=== PATIENT | female | born 2000 | race Caucasian/White ===

== ENCOUNTER 2023-09-16 12:48 | Inpatient (IN) | payer MEDICARE, OTHER ==
[2023-09-16 12:55] VITALS: BMI 24.1
[2023-09-16] MEDS ORDERED: SODIUM CHLORIDE 1,000 ML IV STA (13:36)
[2023-09-16 14:36] LABS: BASO % 0.4 % (0-2.0); EOS % 0.4 % (0-4.5); HEMATOCRIT 41.7 % (32.4-45.2); HEMOGLOBIN 13.1 GM/dL (10.7-15.3); LYMPH % 14.6 % (8-40); MCHC 31.4 g/dl (32.0-36.0); MEAN CELL VOLUME 82.8 fl (80-96); MEAN PLT VOLUME 8.6 fl (7.5-11.1); NEUT % 77.6 % (42.8-82.8); PLATELET COUNT 210 10^3/uL (134-434); RBC 5.04 M/mm3 (3.60-5.2); RDW 13.7 % (11.6-15.6); WHITE BLOOD COUNT 8.7 K/mm3 (4.0-10.0)
[2023-09-16 14:42] LABS: INR 1.15 (0.83-1.09); PROTHROMBIN TIME (PATIENT) 13.3 SEC (9.7-13.0)
[2023-09-16 14:45] LABS: ACTIVATED PTT 29.7 SECONDS (25.2-36.5)
[2023-09-16 15:02] LABS: POTASSIUM 3.8 mmol/L (3.5-5.1)
[2023-09-16 15:04] LABS: CALCIUM 9.8 mg/dL (8.5-10.1)
[2023-09-16 15:05] LABS: ALBUMIN 4.1 g/dl (3.4-5.0); BLOOD UREA NITROGEN 7.7 mg/dL (7-18)
[2023-09-16 15:08] LABS: CREATININE 0.7 mg/dL (0.55-1.3)
[2023-09-16 15:09] LABS: BILIRUBIN,TOTAL 0.3 mg/dL (0.2-1)
[2023-09-16 15:10] LABS: TOT PROT 7.9 g/dl (6.4-8.2)
[2023-09-16] MEDS ORDERED: ALPRAZolam 0.25 MG TABLET PO ONE (16:10)
[2023-09-16] MEDS ORDERED: ALPRAZolam 0.25 MG TABLET ONE (16:42)
[2023-09-16 17:01] LABS: URINE APPEARANCE CLEAR; URINE BILIRUBIN NEGATIVE (NEGATIVE); URINE COLOR YELLOW; URINE GLUCOSE (UA) NEGATIVE (NEGATIVE); URINE KETONE NEGATIVE (NEGATIVE); URINE LEUK ESTERASE NEGATIVE (NEGATIVE); URINE NITRITE NEGATIVE (NEGATIVE); URINE PROTEIN NEGATIVE (NEGATIVE); URINE UROBILINOGEN 0.2 mg/dL (0.2-1.0)
[2023-09-16 17:05] LABS: HCG,QUALITATIVE URINE Negative
[2023-09-16] MEDS ORDERED: ALPRAZolam 0.25 MG TABLET PO PRN (19:09)
[2023-09-17 08:03] LABS: BASO % 0.5 % (0-2.0); EOS % 0.3 % (0-4.5); HEMATOCRIT 39.2 % (32.4-45.2); HEMOGLOBIN 12.3 GM/dL (10.7-15.3); LYMPH % 22.9 % (8-40); MCHC 31.4 g/dl (32.0-36.0); MEAN CELL VOLUME 82.8 fl (80-96); MEAN PLT VOLUME 9.2 fl (7.5-11.1); MONO % 6.6 % (3.8-10.2); NEUT % 69.7 % (42.8-82.8); PLATELET COUNT 191 10^3/uL (134-434); RBC 4.74 M/mm3 (3.60-5.2); RDW 13.8 % (11.6-15.6); WHITE BLOOD COUNT 8.6 K/mm3 (4.0-10.0)
[2023-09-17 08:51] VITALS: BP 149/96; PULSE 118; RESP 20; TEMP 98.1
[2023-09-17 08:51] LABS: POTASSIUM 3.5 mmol/L (3.5-5.1)
[2023-09-17 09:06] LABS: ALBUMIN 3.6 g/dl (3.4-5.0); BLOOD UREA NITROGEN 9.1 mg/dL (7-18); CALCIUM 9.6 mg/dL (8.5-10.1)
[2023-09-17 09:09] LABS: CREATININE 0.5 mg/dL (0.55-1.3)
[2023-09-17 09:10] LABS: BILIRUBIN,TOTAL 0.5 mg/dL (0.2-1); TOT PROT 7.2 g/dl (6.4-8.2)
[2023-09-17] MEDS ORDERED: metoPROLOL SUCCINATE 25 MG TAB.SR.24H (FP) PO ONE ×2 (12:13→13:59)
== END 2023-09-17 16:22 | disposition home or self-care (01) | DRG 310 ==
LOC: JER 12:48 → JERBED 17:46
PROVIDERS: ADMIT Internal Medicine; ATTEND Internal Medicine
DX: R00.0 Tachycardia, unspecified (principal)
CPT/HCPCS: 0241U-QW; 36415; 71045-TC-FY; 80053; 81003; 83735; 84443; 84484; 84703; 85025; 85379; 85610; 85730; 87086; 93005; 93010; 93306-TC; 99285-25